=== PATIENT | female | born 1980 ===

== ENCOUNTER 2018-06-27 11:21 | Outpatient (CLI) | payer OTHER | END 2018-06-27 11:23 | disposition home or self-care (01) | LOC: SONOGRAMA 11:21 | DX: Z01.419 Encounter for gynecological examination (general) (routine) without abnormal findings (principal); E66.09 Other obesity due to excess calories; N94.5 Secondary dysmenorrhea; R93.5 Abnormal findings on diagnostic imaging of other abdominal regions, including retroperitoneum ==